=== PATIENT | male | born 1965 | race Caucasian/White ===

== ENCOUNTER 2018-10-21 14:25 | Observation (INO) | payer BC ==
[~2018-10-21] VITALS: Ht 190.5 cm; Wt 107.0 kg
[2018-10-21] MEDS ORDERED: PLEASE ENTER HEIGHT AND WEIGHT MC SCH (15:30)
[2018-10-21] MEDS ORDERED: PLEASE ENTER ALLERGIES MC SCH (15:30)
[2018-10-21 15:55] LABS: MEAN CORPUSCULAR HEMOGLOBIN 31.5 pg (27.5-34.5); MEAN CORPUSCULAR HGB CONC 33.4 g/dL (33.2-36.2); MEAN CORPUSCULAR VOLUME 94.5 fL (81-97); MEAN PLATELET VOLUME 8.2 fL (7.4-10.4); PLATELET COUNT 250 x10^3/uL (130-400); RED BLOOD COUNT 4.62 x10^6/uL (4.38-5.82)
[2018-10-21 16:02] LABS: ANION GAP 11 mmol/L (5-15); CALCIUM 8.5 mg/dL (8.5-10.1); CHLORIDE 105 mmol/L (98-107); CREATININE 1.68 mg/dL (0.7-1.3)
[2018-10-21 16:31] VITALS: BP 109/61
[2018-10-21 16:35] LABS: BASOPHILS % (AUTO) 0 % (0-1); EOSINOPHILS % (AUTO) 0 % (1-7); LYMPHOCYTES # (AUTO) 0.36 x10^3/uL (1-3.4); LYMPHOCYTES % (AUTO) 2 % (22-44); MD SCAN; MONOCYTES # (AUTO) 0.41 x10^3/uL (0.2-0.8); MONOCYTES % (AUTO) 3 % (2-9); NEUTROPHILS # (AUTO) 16.02 x10^3/uL (1.8-6.8); NEUTROPHILS % (AUTO) 95 % (42-75)
[2018-10-21 17:14] LABS: TROPONIN I < 0.015 ng/mL (0.000-0.045)
[2018-10-21] MEDS ORDERED: NITROGLYCERIN 0.4 MG BOTTLE (25 TABS) SL PRN (17:30)
[2018-10-21] MEDS: INSULIN LISPRO 100 UNITS/ML, PEN SQ-INSULIN SCH ×2 (17:30→19:53)
[2018-10-21] MEDS: SODIUM CHLORIDE 0.9% 1,000 ML IV SCH (17:30)
[2018-10-21] MEDS ORDERED: ASPIRIN 81 MG TABLET CHEW PO ONE (17:30)
[2018-10-21 18:00] LABS: D-DIMER 0.84 ug/mlFEU (0.00-0.52); PROTHROMBIN TIME 10.5 Seconds (9.6-11.5)
[2018-10-21] MEDS ORDERED: METOCLOPRAMIDE 5 MG/ML, 2ML IV PRN (18:00)
[2018-10-21] MEDS ORDERED: DIPHENHYDRAMINE 50 MG/ML, 1ML IVPush PRN (18:00)
[2018-10-21] MEDS ORDERED: LORazepam 2 MG/ML, 1ML IV PRN (18:00)
[2018-10-21] MEDS ORDERED: HYDROmorphone 1 MG/ML, 1ML INJ IV PRN (18:00)
[2018-10-21] MEDS ORDERED: ONDANSETRON 2MG/ML, 2ML IV PRN (18:00)
[2018-10-21] MEDS ORDERED: HYDROmorphone 2 MG/ML, 1ML ONE (18:06)
[2018-10-21] MEDS: CEFAZOLIN PMX 2GM/50ML 50 ML IVPB SCH (18:09)
[2018-10-21 18:16] LABS: HEMOGLOBIN A1C 7.8 % (4.2-6.3)
[2018-10-21] MEDS ORDERED: METHOCARBAMOL 750 MG TABLET PO PRN (19:00)
[2018-10-21] MEDS: ATORVASTATIN 80 MG TABLET PO SCH (19:53)
[2018-10-21 19:55] VITALS: BP 116/55
[2018-10-21 21:14] LABS: TROPONIN I < 0.015 ng/mL (0.000-0.045)
[2018-10-22] MEDS: SODIUM CHLORIDE 0.9% 1,000 ML IV SCH ×2 (01:11→17:50)
[2018-10-22] MEDS: HYDROmorphone 2 MG/ML, 1ML IV PRN ×5 (01:11→21:04)
[2018-10-22 01:23] VITALS: BP 103/62
[2018-10-22] MEDS: CEFAZOLIN PMX 2GM/50ML 50 ML IVPB SCH ×3 (01:37→17:50)
[2018-10-22 02:34] LABS: BASOPHILS # (AUTO) 0.08 x10^3/uL (0-0.1); BASOPHILS % (AUTO) 1 % (0-1); EOSINOPHILS # (AUTO) 0.01 x10^3/uL (0-0.4); EOSINOPHILS % (AUTO) 0 % (1-7); LYMPHOCYTES # (AUTO) 1.02 x10^3/uL (1-3.4); LYMPHOCYTES % (AUTO) 7 % (22-44); MD NO; MEAN CORPUSCULAR HEMOGLOBIN 31.8 pg (27.5-34.5); MEAN CORPUSCULAR HGB CONC 33.9 g/dL (33.2-36.2); MEAN CORPUSCULAR VOLUME 93.6 fL (81-97); MEAN PLATELET VOLUME 8.3 fL (7.4-10.4); MONOCYTES # (AUTO) 0.44 x10^3/uL (0.2-0.8); MONOCYTES % (AUTO) 3 % (2-9); NEUTROPHILS % (AUTO) 89 % (42-75); PLATELET COUNT 227 x10^3/uL (130-400); RED BLOOD COUNT 4.06 x10^6/uL (4.38-5.82); RED CELL DISTRIBUTION WIDTH 13.1 % (9.4-14.8)
[2018-10-22 02:44] LABS: ALBUMIN 2.8 g/dL (3.4-5.0); ANION GAP 4 mmol/L (5-15); CALCIUM 8.2 mg/dL (8.5-10.1); CHLORIDE 107 mmol/L (98-107)
[2018-10-22 02:48] LABS: ALANINE AMINOTRANSFERASE 24 U/L (12-78); ALKALINE PHOSPHATASE 70 U/L (45-117); BILIRUBIN,TOTAL 0.4 mg/dL (0.2-1.0); CREATININE 1.39 mg/dL (0.7-1.3); TOTAL PROTEIN 5.1 g/dL (6.4-8.2); TROPONIN I < 0.015 ng/mL (0.000-0.045)
[2018-10-22 04:51] LABS: MICROSCOPIC NOT IND
[2018-10-22 04:55] LABS: CULTURE INDICATED? NO
[2018-10-22] MEDS: INSULIN LISPRO 100 UNITS/ML, PEN SQ-INSULIN SCH ×4 (07:00→19:35)
[2018-10-22] MEDS: APIXABAN 5 MG TABLET PO SCH ×2 (11:31→17:46)
[2018-10-22 14:00] VITALS: BP 128/85
[2018-10-22] MEDS: INSULIN GLARGINE 100 UNITS/ML, PEN SQ-INSULIN SCH ×2 (14:00→19:35)
[2018-10-22] MEDS: AMOXICILLIN/CLAV 875-125MG TABLET PO SCH (19:35)
[2018-10-22] MEDS: DOXYCYCLINE 100MG TABLET PO SCH (19:35)
[2018-10-22] MEDS: ATORVASTATIN 80 MG TABLET PO SCH (19:35)
[2018-10-22 20:21] VITALS: BP 113/65
[2018-10-23] MEDS: HYDROmorphone 2 MG/ML, 1ML IV PRN ×3 (01:57→09:30)
[2018-10-23] MEDS: CEFAZOLIN PMX 2GM/50ML 50 ML IVPB SCH (01:57)
[2018-10-23 02:08] VITALS: BP 132/80
[2018-10-23] MEDS: SODIUM CHLORIDE 0.9% 1,000 ML IV SCH (06:37)
[2018-10-23] MEDS: INSULIN LISPRO 100 UNITS/ML, PEN SQ-INSULIN SCH (07:00)
[2018-10-23] MEDS: INSULIN GLARGINE 100 UNITS/ML, PEN SQ-INSULIN SCH (07:34)
[2018-10-23] MEDS: AMOXICILLIN/CLAV 875-125MG TABLET PO SCH (07:45)
[2018-10-23] MEDS: DOXYCYCLINE 100MG TABLET PO SCH (07:45)
[2018-10-23 08:25] LABS: ANION GAP 4 mmol/L (5-15); CALCIUM 8.4 mg/dL (8.5-10.1); CHLORIDE 110 mmol/L (98-107); CREATININE 0.98 mg/dL (0.7-1.3)
[2018-10-23 08:27] VITALS: BP 127/73
[2018-10-23] MEDS ORDERED: DOXY100T PO (09:12)
[2018-10-23] MEDS ORDERED: AMOX1TAB12 PO (09:12)
== END 2018-10-23 10:42 | disposition home or self-care (01) ==
LOC: 5SO 14:55 → INTOOBSV 14:55 → DCLOUNGE 10-23 10:36
PROVIDERS: ADMIT Neurological Surgery; ATTEND Neurological Surgery
DX: M48.061 Spinal stenosis, lumbar region without neurogenic claudication (principal); M51.16 Intervertebral disc disorders with radiculopathy, lumbar region; E10.9 Type 1 diabetes mellitus without complications; J96.01 Acute respiratory failure with hypoxia; E78.5 Hyperlipidemia, unspecified; D72.829 Elevated white blood cell count, unspecified; N17.9 Acute kidney failure, unspecified; Z79.4 Long term (current) use of insulin; Z86.711 Personal history of pulmonary embolism; Z96.41 Presence of insulin pump (external) (internal); Z82.49 Family history of ischemic heart disease and other diseases of the circulatory system
CPT/HCPCS: 36415; 36600; 71045; 71275; 78582; 80048; 80053; 81003; 82803; 83036; 83880; 84484; 85025; 85379; 85610; 85730; 93005; 93306; 93970; 94664; 96365; 96366; 96375; 96376; A9540; A9558; C9898; G0378; J0690; J1170; J7030